=== PATIENT | female | born 1930 | race Asian ===

== ENCOUNTER 2017-08-18 17:26 | Inpatient (IN) | payer OTHER, MEDICAID ==
[~2017-08-18] VITALS: Ht 152.4 cm; Wt 67.1 kg
[2017-08-18 17:26] VITALS: BP_SYST 142
[2017-08-18 18:20] LABS: HEMATOCRIT 26.5 % (36-48); MEAN CORPUSCULAR HEMOGLOBIN 32 pg (27-31); MEAN CORPUSCULAR HGB CONC 34 % (32-36); MEAN CORPUSCULAR VOLUME 93 fL (79.0-98.0); PLATELET COUNT (AUTO) 175 K/uL (130-430); RED BLOOD CELL COUNT(AUTO) 2.85 MIL/uL (4.2-6.2); RED CELL DISTRIBUTION WIDTH 14.3 % (9.0-15.0); WHITE BLOOD COUNT (AUTO) 14.6 K/uL (4.8-10.8)
[2017-08-18 18:24] LABS: ANION GAP 6 (5-15); CREATININE 1.44 mg/dL (0.55-1.30); GLUCOSE 244 mg/dL (70-99); POTASSIUM 3.5 mmol/L (3.5-5.1); SODIUM SERUM 154 mmol/L (136-145); UREA NITROGEN, BLOOD 69 mg/dL (8-21)
[2017-08-18 18:29] LABS: ALANINE AMINOTRANSFERASE 38 U/L (12-78); ASPARTATE AMINOTRANSFERASE 29 U/L (10-37); TOTAL BILIRUBIN 0.7 mg/dL (0.0-1.0)
[2017-08-18 18:32] LABS: INR 0.9 (0.8-1.2); PROTHROMBIN TIME 9.6 SECS (9.5-12.5)
[2017-08-18 18:39] LABS: CHLORIDE 122 mmol/L (98-107)
[2017-08-18 18:47] LABS: BILIRUBIN,URINE NEGATIVE (NEGATIVE); BLOOD, URINE 1+ (NEGATIVE); CLARITY/URINE HAZY (CLEAR); COLOR,URINE YELLOW (YELLOW); GLUCOSE,URINE TRACE (NEGATIVE); KETONES,URINE NEGATIVE (NEGATIVE); LEUKOCYTE ESTERASE ,URINE 1+ (NEGATIVE); NITRITE, URINE NEGATIVE (NEGATIVE); PROTEIN URINE 1+ (NEGATIVE); UROBILINOGEN,URINE 0.2 (0.2-1.0)
[2017-08-18 18:57] LABS: BAND % (MANUAL) 25 % (0-6); BASOPHILS % (MANUAL) 0 % (0-2); EOSINOPHILS % (MANUAL) 0 % (0-7); LYMPHOCYTES % (MANUAL) 12 % (20-46); MONOCYTES % (MANUAL) 2 % (0-11)
[2017-08-18] MEDS ORDERED: AMLO5TAB4 GT (18:58)
[2017-08-18] MEDS ORDERED: ONDA4TAB5 GT (18:58)
[2017-08-18] MEDS ORDERED: CHLO473M5 MM (18:58)
[2017-08-18] MEDS ORDERED: ALBU2.5V7 INH (18:58)
[2017-08-18] MEDS ORDERED: CAT.1 PO (18:58)
[2017-08-18] MEDS ORDERED: MAGN400O4 PO (18:58)
[2017-08-18] MEDS ORDERED: METO50TA7 GT (18:58)
[2017-08-18] MEDS ORDERED: TYLR650 RC (18:58)
[2017-08-18] MEDS ORDERED: LOSA50TA3 GT (18:58)
[2017-08-18 19:07] LABS: BACTERIA,URINE MANY /HPF (None Seen); HYALINE CASTS, URINE 0-2 /LPF (None Seen)
[2017-08-18] MEDS ORDERED: cefTRIAXone 1 GM IVPB PREMIX 50 ML IV ONE (19:15)
[2017-08-18] MEDS ORDERED: NACL 0.9% 1,000 ML IV ONE (20:00)
[2017-08-18] MEDS ORDERED: ASPIRIN 300 MG/SUPP.RECT SUPP RC ONE (20:15)
[2017-08-18 22:35] VITALS: BP_SYST 130
[2017-08-18] MEDS ORDERED: cloNIDine HCL 0.1 MG TABLET PO SCH (22:45)
[2017-08-18] MEDS ORDERED: ACETAMINOPHEN 650 MG/20.3 ML UDC GT PRN (22:45)
[2017-08-18] MEDS ORDERED: ONDANSETRON 4 MG ODT TAB GT PRN (22:45)
[2017-08-18] MEDS ORDERED: ASPIRIN 81 MG TAB.CHEW GT ONE (23:00)
[2017-08-18 23:15] VITALS: BP_SYST 128
[2017-08-18 23:35] VITALS: BP_SYST 130
[2017-08-18 23:45] VITALS: BP_SYST 110
[2017-08-19] VITALS (24 sets, daily range): BP systolic 97–140
[2017-08-19] MEDS: INSULIN ASPART 100 UNITS/ML, 10 ML VIAL (NovoLOG) SUBCUT PRN ×2 (00:01→06:29)
[2017-08-19] MEDS: 0.45% NACL 1,000 ML IV SCH ×2 (00:01→10:47)
[2017-08-19] MEDS ORDERED: FLU VACC QS 2017-18(36MOS+)/PF 0.5 ML/SYR SYRINGE I.M. PRN (02:30)
[2017-08-19] MEDS ORDERED: PIPERACILLIN/TAZOBACTAM 2.25 GM VIAL IV ONE (06:15)
[2017-08-19] MEDS ORDERED: VANCOMYCIN HCL 1 GM/NS PREMIX 250 ML IV ONE (06:15)
[2017-08-19] MEDS ORDERED: PIPERACILLIN/TAZO 2.25G/DEX-IS 50 ML IV ONE (06:15)
[2017-08-19 06:40] LABS: EOSINOPHILS # (AUTO) 0.1 K/uL (0.0-0.4); EOSINOPHILS % (AUTO) 0.9 % (0.0-4.0); HEMATOCRIT 23.3 % (36-48); HEMOGLOBIN 7.7 g/dL (12.0-16.0); LYMPHOCYTES # (AUTO) 1.2 K/uL (1.0-5.5); LYMPHOCYTES % (AUTO) 8.9 % (20.5-51.5); MEAN CORPUSCULAR HEMOGLOBIN 31 pg (27-31); MEAN CORPUSCULAR HGB CONC 33 % (32-36); MEAN CORPUSCULAR VOLUME 94 fL (79.0-98.0); MONOCYTES # (AUTO) 0.4 K/uL (0.0-1.0); MONOCYTES % (AUTO) 3.2 % (1.7-9.3); NEUTROPHILS # (AUTO) 11.6 K/uL (1.8-7.7); PLATELET COUNT (AUTO) 134 K/uL (130-430); RED BLOOD CELL COUNT(AUTO) 2.48 MIL/uL (4.2-6.2); RED CELL DISTRIBUTION WIDTH 14.6 % (9.0-15.0); WHITE BLOOD COUNT (AUTO) 13.3 K/uL (4.8-10.8)
[2017-08-19] MEDS: VANCOMYCIN HCL 1000 MG/VIAL IV ONE ×2 (06:52→06:57)
[2017-08-19 07:03] LABS: ALANINE AMINOTRANSFERASE 30 U/L (12-78); ALBUMIN 2.5 g/dL (3.4-4.8); ANION GAP 7 (5-15); ASPARTATE AMINOTRANSFERASE 25 U/L (10-37); CALCIUM 10.7 mg/dL (8.4-11.0); CREATININE 1.43 mg/dL (0.55-1.30); GLUCOSE 209 mg/dL (70-99); POTASSIUM 3.1 mmol/L (3.5-5.1); SODIUM SERUM 153 mmol/L (136-145); THYROID STIMULATING HORMONE 0.83 uIu/mL (0.34-4.82); TOTAL BILIRUBIN 0.6 mg/dL (0.0-1.0); UREA NITROGEN, BLOOD 65 mg/dL (8-21)
[2017-08-19 07:28] LABS: CHLORIDE 120 mmol/L (98-107)
[2017-08-19] MEDS ORDERED: METOPROLOL SUCCINATE 50 MG TAB.SR.24H (TOPROL XL) PO SCH (09:00)
[2017-08-19] MEDS ORDERED: amLODIPine BESYLATE 5 MG TABLET GT SCH (09:00)
[2017-08-19] MEDS ORDERED: POTASSIUM CHLORIDE 20 MEQ TAB.PRT.SR GT ONE (09:00)
[2017-08-19] MEDS ORDERED: CHLORHEXIDINE GLUCONATE 15 ML/DOSE, 480 ML MM SCH (09:00)
[2017-08-19 09:44] LABS: PROTHROMBIN TIME 9.9 SECS (9.5-12.5)
[2017-08-19] MEDS: AMPICILLIN SODIUM/SULBACTAM NA 3 GM in NS 100 ML IV SCH ×2 (12:10→17:59)
[2017-08-19 15:39] LABS: TOTAL IRON BIND. CAPACITY 219 ug/dL (250-450)
[2017-08-19] MEDS ORDERED: BALSAM PERU/CASTOR OIL 60 GM OINT...G. TP PRN (16:15)
[2017-08-20] MEDS ORDERED: D5W IV SCH (06:00)
[2017-08-20] MEDS ORDERED: VANCOMYCIN HCL IV SCH (06:00)
[2017-08-20] MEDS ORDERED: BALSAM PERU/CASTOR OIL 60 GM OINT...G. TP SCH (09:00)
[2017-08-20 12:07] LABS: FOLATE (FOLIC ACID) >20.0 ng/mL (>3.0)
[2017-08-21 12:19] LABS: FERRITIN 490 ng/mL (15-150)
== END 2017-08-19 19:50 | disposition short-term general hospital (02) | DRG 871 ==
LOC: SED 17:26 → SIC 22:08
PROVIDERS: ADMIT Internal Medicine; ATTEND Internal Medicine
PROC: 5A1945Z Respiratory Ventilation, 24-96 Consecutive Hours (ICD-10-PCS; 2017-08-18)
PROC: 02HV33Z Insertion of Infusion Device into Superior Vena Cava, Percutaneous Approach (ICD-10-PCS; principal; 2017-08-19)
PROC: B548ZZA Ultrasonography of Superior Vena Cava, Guidance (ICD-10-PCS; 2017-08-19)
DX: A40.9 Streptococcal sepsis, unspecified (principal); G93.40 Encephalopathy, unspecified; N17.0 Acute kidney failure with tubular necrosis; G82.50 Quadriplegia, unspecified; Z99.11 Dependence on respirator [ventilator] status; J96.10 Chronic respiratory failure, unspecified whether with hypoxia or hypercapnia; E44.0 Moderate protein-calorie malnutrition; L89.159 Pressure ulcer of sacral region, unspecified stage; E11.22 Type 2 diabetes mellitus with diabetic chronic kidney disease; L03.221 Cellulitis of neck; N39.0 Urinary tract infection, site not specified; E87.0 Hyperosmolality and hypernatremia; L03.313 Cellulitis of chest wall; L03.114 Cellulitis of left upper limb; E78.5 Hyperlipidemia, unspecified; E86.0 Dehydration; R13.10 Dysphagia, unspecified; D64.9 Anemia, unspecified; N18.9 Chronic kidney disease, unspecified; E87.6 Hypokalemia; F03.90 Unspecified dementia, unspecified severity, without behavioral disturbance, psychotic disturbance, mood disturbance, and anxiety; L89.029 Pressure ulcer of left elbow, unspecified stage; I35.0 Nonrheumatic aortic (valve) stenosis; I12.9 Hypertensive chronic kidney disease with stage 1 through stage 4 chronic kidney disease, or unspecified chronic kidney disease; Z93.0 Tracheostomy status; Z88.8 Allergy status to other drugs, medicaments and biological substances; Z93.1 Gastrostomy status; Z98.2 Presence of cerebrospinal fluid drainage device; Z74.01 Bed confinement status; Z68.28 Body mass index [BMI] 28.0-28.9, adult
CPT/HCPCS: 36415; 36600; 71010; 76770; 80053; 81000-TC; 82607; 82728; 82746; 82803-TC; 82962; 83540-TC; 83550-TC; 83605; 83735-TC; 83880; 84443-TC; 84484; 85007; 85025; 85027; 85610-TC; 85730-TC; 87040-TC; 87070-TC; 87075-TC; 87081; 87086; 87186-TC; 87205-TC; 93005; 93306; 94002; 94003; 96361; 96365; 99285; C1751; J0295; J0696; J1815; J2543; J3370; J7030; J7050; J7060; Q0162